=== PATIENT | female | born 1965 | race African-American/Black ===

== ENCOUNTER 2019-05-04 07:15 | Inpatient (IN) ==
[2019-05-04] MEDS ORDERED: ONDANSETRON 4 MG/2 ML VIAL IV STA ×2 (08:10→13:21)
[2019-05-04 08:18] LABS: Apearance,Urine CLEAR (Clear); Bilirubin,Urine Negative (Negative); Blood, Urine Negative (Negative); Glucose,Urine (UA) Negative (Negative); Ketones,Urine Negative (Negative); Mucus,Urine Occasional /LPF (Occasional); Nitrite,Urine Negative (Negative); Protein,Urine Negative; RBC,Urine 1 /HPF (0-4); Squamous Epithelial Cell,Urine Occasional /HPF (0-10); Urine Color Straw (Yellow); Urine Specific Gravity 1.009 (1.001-1.035); Urine Urobilinogen < 2.0 EU/DL (0.2-1.0); WBC,Urine 1 /HPF (0-6)
[2019-05-04 09:23] LABS: Basophils % 0.6 % (0.0-0.8); Eosinophils # 0.1 10*3/uL (0.0-0.87); Eosinophils % 1.5 % (0.00-10.9); Hematocrit 37.8 VOL% (35.7-47.0); Hemoglobin 11.8 GM/DL (12.0-16.0); Immature Granulocytes % 0.3 %; Immature Granulocytes Absolute 0.02 #; Lymphocytes # 2.5 10*3/uL (1.4-4.0); Lymphocytes % 36.8 % (21.3-54.2); Mean Corpuscular HGB Conc 31.2 GM/DL (32-36); Neutrophils % 52.8 % (38.7-73.9); Platelet Count 306 T/CUMM (130-400); Red Blood Count 5.73 MC/CUMM (3.8-5.5); Red Cell Distribution Width 21.6 % (9.3-17.3); White Blood Count 6.7 T/CUMM (4-12)
[2019-05-04 09:26] LABS: Albumin 3.6 G/DL (3.4-5.0); Bilirubin,Total 0.7 MG/DL (0.2-1.0); Calcium 8.1 MG/DL (8.5-10.1); Osmolality,Calculated 279.4 MOS/KG (273-304); Total Protein 7.7 G/DL (6.4-8.3)
[2019-05-04] MEDS ORDERED: HYDROmorphone 2 MG/1 ML VIAL IV STA (13:21)
[2019-05-04] MEDS ORDERED: POTASSIUM CHLORIDE 20 MEQ TABLET PO STA (14:47)
[2019-05-04] MEDS ORDERED: PROMETHAZINE 25 MG/1 ML VIAL IM PRN (15:40)
[2019-05-04] MEDS ORDERED: KETOROLAC 15 MG/1 ML VIAL IV PRN (15:40)
[2019-05-04] MEDS ORDERED: ACETAMINOPHEN 325 MG TABLET PO PRN (15:40)
[2019-05-04] MEDS ORDERED: BISACODYL 5 MG TABLET PO PRN (15:40)
[2019-05-04] MEDS: LACTATED RINGERS 1,000 ML IV SCH (17:02)
[2019-05-04] MEDS: ONDANSETRON 4 MG/2 ML VIAL IV PRN (17:05)
[2019-05-04] MEDS: PIPERACILLIN/TAZOBACTAM 3,375 MG in SODIUM CHLORIDE 0.9% 100 ML IV SCH (17:05)
[2019-05-04] MEDS: POTASSIUM CHLORIDE RIDER 10 MEQ in PREMIX 1 EACH IV PRN ×3 (17:10→23:16)
[2019-05-04] MEDS: ATORVASTATIN 80 MG TABLET PO SCH (22:38)
[2019-05-05] MEDS: PIPERACILLIN/TAZOBACTAM 3,375 MG in SODIUM CHLORIDE 0.9% 100 ML IV SCH ×3 (00:30→19:34)
[2019-05-05] MEDS: POTASSIUM CHLORIDE RIDER 10 MEQ in PREMIX 1 EACH IV PRN ×2 (01:07→02:36)
[2019-05-05 05:51] LABS: Basophils % 0.3 % (0.0-0.8); Eosinophils % 0.2 % (0.00-10.9); Hematocrit 38.3 VOL% (35.7-47.0); Hemoglobin 11.7 GM/DL (12.0-16.0); Immature Granulocytes % 0.3 %; Immature Granulocytes Absolute 0.04 #; Lymphocytes # 2.2 10*3/uL (1.4-4.0); Mean Corpuscular HGB Conc 30.5 GM/DL (32-36); Mean Corpuscular Volume 66.1 FL (87-102); Monocytes % 4.7 % (1.7-12.7); Neutrophils % 76.5 % (38.7-73.9); Platelet Count 378 T/CUMM (130-400); Red Blood Count 5.79 MC/CUMM (3.8-5.5); Red Cell Distribution Width 22.2 % (9.3-17.3)
[2019-05-05 06:10] LABS: Albumin 3.7 G/DL (3.4-5.0); Bilirubin,Total 1.4 MG/DL (0.2-1.0); Calcium 8.5 MG/DL (8.5-10.1); Osmolality,Calculated 275.5 MOS/KG (273-304); Total Protein 7.9 G/DL (6.4-8.3)
[2019-05-05 06:11] LABS: Acanthocytes Few; Ovalocytes Few
[2019-05-05 06:12] LABS: Anisocytosis 1+; Hypochromasia 1+; Microcytosis 1+
[2019-05-05 06:13] LABS: Platelet Estimate Normal
[2019-05-05] MEDS: ASPIRIN EC 81 MG TABLET PO SCH (10:16)
[2019-05-05] MEDS: amLODIPine 10 MG TABLET PO SCH (10:17)
[2019-05-05] MEDS: LOSARTAN 50 MG TABLET PO SCH (10:17)
[2019-05-05] MEDS: CHOLECALCIFEROL 1,000 UNIT TABLET PO SCH (10:17)
[2019-05-05] MEDS: PANTOPRAZOLE 40 MG TABLET PO SCH (10:17)
[2019-05-05] MEDS ORDERED: FUROSEMIDE 20 MG TABLET PO SCH (14:00)
[2019-05-05] MEDS: POTASSIUM CHLORIDE 10 MEQ TABLET PO SCH (15:07)
[2019-05-05] MEDS: LACTATED RINGERS 1,000 ML IV SCH ×3 (15:08→16:49)
[2019-05-05] MEDS: ATORVASTATIN 80 MG TABLET PO SCH (21:02)
[2019-05-06] MEDS: PIPERACILLIN/TAZOBACTAM 3,375 MG in SODIUM CHLORIDE 0.9% 100 ML IV SCH ×3 (00:02→17:50)
[2019-05-06] MEDS: LACTATED RINGERS 1,000 ML IV SCH ×3 (00:03→16:45)
[2019-05-06 05:35] LABS: Basophils % 0.6 % (0.0-0.8); Eosinophils # 0.1 10*3/uL (0.0-0.87); Eosinophils % 1.5 % (0.00-10.9); Hematocrit 38.2 VOL% (35.7-47.0); Hemoglobin 11.6 GM/DL (12.0-16.0); Immature Granulocytes % 0.3 %; Immature Granulocytes Absolute 0.02 #; Lymphocytes % 30.9 % (21.3-54.2); Mean Corpuscular HGB Conc 30.4 GM/DL (32-36); Mean Corpuscular Volume 65.6 FL (87-102); Monocytes % 6.2 % (1.7-12.7); Neutrophils % 60.5 % (38.7-73.9); Platelet Count 325 T/CUMM (130-400); Red Blood Count 5.82 MC/CUMM (3.8-5.5); Red Cell Distribution Width 22.3 % (9.3-17.3); White Blood Count 6.6 T/CUMM (4-12)
[2019-05-06 05:58] LABS: Albumin 3.5 G/DL (3.4-5.0); Bilirubin,Total 1.6 MG/DL (0.2-1.0); Calcium 8.4 MG/DL (8.5-10.1); Osmolality,Calculated 274.5 MOS/KG (273-304); Total Protein 7.4 G/DL (6.4-8.3)
[2019-05-06 06:07] LABS: Hypochromasia 1+; Platelet Estimate Adequate
[2019-05-06 06:08] LABS: Microcytosis 1+
[2019-05-06] MEDS: CHOLECALCIFEROL 1,000 UNIT TABLET PO SCH (10:00)
[2019-05-06] MEDS: LOSARTAN 50 MG TABLET PO SCH (10:00)
[2019-05-06] MEDS: amLODIPine 10 MG TABLET PO SCH (10:00)
[2019-05-06] MEDS: PANTOPRAZOLE 40 MG TABLET PO SCH (10:00)
[2019-05-06 13:00] LABS: PT Patient Result 11.3 SECS (9.6-12.2)
[2019-05-06] MEDS ORDERED: POTASSIUM CHLORIDE 20 MEQ TABLET PO ONE (13:28)
[2019-05-06] MEDS ORDERED: DIAZEPAM 5 MG TABLET PO ONE (14:29)
[2019-05-06] MEDS ORDERED: MIDAZOLAM 2 MG/2 ML VIAL IV ONE (14:30)
[2019-05-06] MEDS ORDERED: fentaNYL 100 MCG/2 ML VIAL IV ONE (14:30)
[2019-05-06] MEDS ORDERED: ONDANSETRON 4 MG/2 ML VIAL ONE (15:03)
[2019-05-06] MEDS: ONDANSETRON 4 MG/2 ML VIAL IV PRN (15:05)
[2019-05-06] MEDS: ASPIRIN EC 81 MG TABLET PO SCH (15:38)
[2019-05-06] MEDS: HYDROmorphone 2 MG/1 ML VIAL IV PRN ×2 (16:26→20:46)
[2019-05-06] MEDS: POTASSIUM CHLORIDE 10 MEQ TABLET PO SCH (17:47)
[2019-05-06] MEDS: ATORVASTATIN 80 MG TABLET PO SCH (21:47)
[2019-05-07] MEDS: PIPERACILLIN/TAZOBACTAM 3,375 MG in SODIUM CHLORIDE 0.9% 100 ML IV SCH ×3 (00:41→17:34)
[2019-05-07] MEDS: LACTATED RINGERS 1,000 ML IV SCH ×3 (09:06→23:12)
[2019-05-07] MEDS: LOSARTAN 50 MG TABLET PO SCH (09:09)
[2019-05-07] MEDS: CHOLECALCIFEROL 1,000 UNIT TABLET PO SCH (09:09)
[2019-05-07] MEDS: ASPIRIN EC 81 MG TABLET PO SCH (09:09)
[2019-05-07] MEDS: PANTOPRAZOLE 40 MG TABLET PO SCH (09:09)
[2019-05-07] MEDS: amLODIPine 10 MG TABLET PO SCH (09:09)
[2019-05-07 10:01] LABS: Albumin 3.4 G/DL (3.4-5.0); Bilirubin,Total 1.4 MG/DL (0.2-1.0); Calcium 8.7 MG/DL (8.5-10.1); Osmolality,Calculated 278.3 MOS/KG (273-304); Total Protein 7.4 G/DL (6.4-8.3)
[2019-05-07 11:17] LABS: Basophils % 0.4 % (0.0-0.8); Eosinophils % 0.3 % (0.00-10.9); Hematocrit 38.3 VOL% (35.7-47.0); Hemoglobin 11.6 GM/DL (12.0-16.0); Immature Granulocytes % 0.3 %; Immature Granulocytes Absolute 0.03 #; Lymphocytes # 1.6 10*3/uL (1.4-4.0); Lymphocytes % 14.5 % (21.3-54.2); Mean Corpuscular HGB Conc 30.3 GM/DL (32-36); Mean Corpuscular Volume 66.6 FL (87-102); Mean Platelet Volume 10.8 FL (9.6-12.0); Monocytes % 5.6 % (1.7-12.7); Neutrophils % 78.9 % (38.7-73.9); Platelet Count 349 T/CUMM (130-400); Red Blood Count 5.75 MC/CUMM (3.8-5.5); Red Cell Distribution Width 22.3 % (9.3-17.3); White Blood Count 11.1 T/CUMM (4-12)
[2019-05-07 11:37] LABS: Anisocytosis 1+
[2019-05-07 11:38] LABS: Elliptocytes Few; Hypochromasia 2+; Microcytosis 2+; Ovalocytes Few; Poikilocytosis 2+; Schistocytes Few; Target Cells Slight
[2019-05-07 11:39] LABS: Platelet Estimate Normal
[2019-05-07] MEDS: POTASSIUM CHLORIDE 10 MEQ TABLET PO SCH (14:23)
[2019-05-07] MEDS: ATORVASTATIN 80 MG TABLET PO SCH (20:18)
[2019-05-07] MEDS: POTASSIUM CHLORIDE RIDER 10 MEQ in PREMIX 1 EACH IV PRN ×2 (22:01→23:16)
[2019-05-08] MEDS: POTASSIUM CHLORIDE RIDER 10 MEQ in PREMIX 1 EACH IV PRN ×2 (00:19→01:18)
[2019-05-08] MEDS: LACTATED RINGERS 1,000 ML IV SCH ×2 (01:18→06:14)
[2019-05-08] MEDS: PIPERACILLIN/TAZOBACTAM 3,375 MG in SODIUM CHLORIDE 0.9% 100 ML IV SCH ×2 (02:17→09:13)
[2019-05-08 07:51] VITALS: BP 115/63
[2019-05-08] MEDS: CHOLECALCIFEROL 1,000 UNIT TABLET PO SCH (09:13)
[2019-05-08] MEDS: PANTOPRAZOLE 40 MG TABLET PO SCH (09:13)
[2019-05-08] MEDS: amLODIPine 10 MG TABLET PO SCH (09:13)
[2019-05-08] MEDS: LOSARTAN 50 MG TABLET PO SCH (09:13)
[2019-05-08] MEDS: ASPIRIN EC 81 MG TABLET PO SCH (09:13)
[2019-05-08] MEDS ORDERED: POTASSIUM CHLORIDE 20 MEQ TABLET PO ONE (09:46)
[2019-05-08] MEDS ORDERED: POTASSIUM CHLORIDE 20 MEQ TABLET PO SCH (10:00)
[2019-05-08] MEDS ORDERED: CIPROFLOXACIN 500 MG TABLET PO SCH (10:00)
== END 2019-05-08 11:51 | disposition home or self-care (01) | DRG 446 ==
LOC: N.EDINP 07:15 → N.ED 07:15 → N.2W 16:07 → N.5E 05-06 16:09
PROVIDERS: ADMIT Surgery; ATTEND Surgery